=== PATIENT | female | born 1970 | race Two or more races ===

== ENCOUNTER 2020-04-11 09:57 | Outpatient (REF) | payer OTHER, SELFPAY | END 2020-04-11 09:58 | disposition home or self-care (01) | LOC: HO.LAB 09:57 | PROVIDERS: PCP Internal Medicine; Visit Provider Internal Medicine | DX: Z20.828 Contact with and (suspected) exposure to other viral communicable diseases (principal) | CPT/HCPCS: C9803; U0003 ==

== ENCOUNTER 2020-07-27 16:27 | Outpatient (RCR) | payer OTHER, SELFPAY ==
--- NOTE | 2020-07-27 17:55 | MHC.PT.EP ---
[facility] [place] Office [place] Office [place] Office [address] Diane Washburn [address] [phone] F: [phone] F: [phone] F: [phone] F: [phone] Physical Therapy Plan of Care Date of Evaluation: 07/27/20 Date of Surgery: Diagnosis: Cervicalgia Assessment: 49 y/o F referred to PT with cervicalgia. 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 Examination shows decreased cervical AROM, decreased R shoulder AROM, decreased scapular/RTC strength, increased pain and TTP, and impaired postural awareness. S/s consistent with cervical derangement. REcommend PT 2x/week for 5 weeks to address impairments, implement HEP, and optimize functional mobility. POC to include nkechi-based exercises, KT, STM/IASTM, nerve glides (?CTS R hand), postural training and strengthening. Frequency and Duration: The patient will be seen 2x/week for 5 weeks Short Term Goals: 3 weeks: 1. I with HEP 2. Improve cervical AROM >5 degrees in each direction Usp Goals: 5 weeks: 1. I with HEP and self management of sx 2. Pt will be able to reach overhead with pain < 3/10 3. Pt will be able to sleep through the night with pain < 3/10 Treatment Plan: Modalities to reduce pain, spasms and effusion. Manual therapy to restore motion and function. Therapeutic exercise to improve strength and flexibility. Neuromuscular re-education for posture and balance. Therapeutic activities to return to functional activities of daily living. Electronically signed by: Lolis Sherman PT Please sign and return to therapist. Thank you for your referral.
--- NOTE | 2020-08-31 18:05 | MHC.PT.DC ---
[facility] [place] Office [place] Office [place] Office [address] Diane Washburn [address] [phone] F: [phone] F: [phone] F: [phone] F: [phone] Physical Therapy Discharge Report Diagnosis: Cervicalgia Date of Surgery: Date of Evaluation: 07/27/20 Date of Discharge: 08/31/20 Treatments to Date: 1 Cancellations to Date: 0 No Shows to Date: Discharge Status: Visit Non-compliance Discharge Summary: Pt did not f/u with further visits following initial evaluation. D/c at this time Electronically signed by: Lolis Sherman PT Please sign and return to therapist. Thank you for your referral.
== END 2020-08-31 18:05 | disposition home or self-care (01) ==
LOC: HO.PT 16:27
PROVIDERS: PCP Internal Medicine; Visit Provider Internal Medicine
DX: M54.2 Cervicalgia (principal)
CPT/HCPCS: 97110; 97161

== ENCOUNTER 2020-08-04 06:16 | Outpatient (REF) | payer OTHER, SELFPAY ==
--- NOTE | ~2020-08-04 | XR_ITS ---
EXAMINATION: XR CERVICAL SPINE CLINICAL INFORMATION: Cervicalgia COMPARISON: None TECHNIQUE: 3 views of the cervical spine were obtained. FINDINGS: There are no prevertebral soft tissue or bony abnormalities demonstrated. No compression fractures or subluxations are identified. Alignment is maintained at the atlanto-axial articulation. The disc spaces are preserved. Small multilevel endplate osteophytes involving C4-C5, C5-C6, and C6-C7.. The prevertebral soft tissues are normal. The lung apices are clear. XR/XR cervical spine 3V IMPRESSION: Mild degenerative changes of the mid to lower cervical spine.
[2020-08-04 07:08] LABS: Eosinophils Absolute Auto 0.3 X10*3/uL (0.0-0.4); Eosinophils Percent Auto 3.6 % (0-4); Imm Gran Abs Auto 0.02 X10*3/uL (0.00-0.03); Imm Gran Pct Auto 0.3 % (0.0-0.4); MANUAL DIFF FLAG SCAN; PLT CLUMP 1; Red Cell Distribution Width 12.4 % (11.0-16.0); SCAN SMEAR FLAG 1
[2020-08-04 07:09] LABS: Basophils Percent Auto 0.4 % (0-2); Hematocrit 40.1 % (37-47); Hemoglobin 12.7 g/dl (12.0-16.0); Lymphocytes Absolute Auto 3.3 X10*3/uL (1.2-4.9); Lymphocytes Percent Auto 45.2 % (20-40); Mean Corpuscular HGB Conc 31.7 g/dl (31.0-35.0); Mean Corpuscular Hemoglobin 28.9 pg (27.0-33.0); Mean Corpuscular Volume 91.1 fL (80-98); Mean Platelet Volume 10.5 fL (9.4-12.3); Monocytes Absolute Auto 0.7 X10*3/uL (0.1-1.2); Monocytes Percent Auto 9.1 % (2-11); Neutrophils Percent Auto 41.4 % (45-73); Platelet Count 258 X10*3/uL (160-400); White Blood Count 7.2 X10*3/uL (4.8-10.8)
[2020-08-04 07:28] LABS: Alanine Aminotransferase 13 U/L (0-31); Albumin Level 3.8 g/dL (3.5-5.0); Alkaline Phosphatase 71 U/L (39-117); Anion Gap 10 (12-20); Aspartate Amino Transferase 14 U/L (5-31); Bilirubin Total 0.4 mg/dL (0.0-1.0); Blood Urea Nitrogen 21 mg/dL (9-16); Calcium 9.8 mg/dL (8.4-10.2); Carbon Dioxide 29 mmol/L (22-29); Chloride 105 mmol/L (96-108); Estimated Glomerular Filt Rate > 60; Glucose Fasting 94 mg/dL (60-99); Potassium 4.4 mmol/L (3.3-5.1); Sodium 140 mmol/L (135-145)
[2020-08-04 07:49] LABS: Thyroid Stimulating Hormone 1.77 uIU/mL (0.32-4.0)
[2020-08-04 08:01] LABS: Folate 8.2 ng/mL (> or = 4.0); Vitamin B12 398 pg/mL (200-900)
[2020-08-04 08:06] LABS: SLIDE REVIEW VERIFIED
[2020-08-08 12:51] LABS: Vitamin D 25-OH, D2 <4 ng/mL; Vitamin D 25-OH, D3 24 ng/mL; Vitamin D 25-OH, Total 24 ng/mL (30-100)
== END 2020-08-04 06:17 | disposition home or self-care (01) ==
LOC: HO.LAB 06:16
PROVIDERS: PCP Internal Medicine; Visit Provider Internal Medicine
DX: M54.2 Cervicalgia (principal); D64.9 Anemia, unspecified; R53.82 Chronic fatigue, unspecified; E55.9 Vitamin D deficiency, unspecified
CPT/HCPCS: 36415; 72040; 80053; 82306; 82607; 82746; 84443; 85025

== ENCOUNTER 2021-01-13 12:42 | Outpatient (REF) | payer OTHER, SELFPAY ==
[2021-01-18 22:03] LABS: HPV mRNA E6/E7 rflx Not Detected (Not Detected)
== END 2021-01-13 12:43 | disposition home or self-care (01) ==
LOC: HO.LAB 12:42
PROVIDERS: Visit Provider Advanced Practice Midwife
DX: Z01.419 Encounter for gynecological examination (general) (routine) without abnormal findings (principal); R23.2 Flushing; D25.9 Leiomyoma of uterus, unspecified
CPT/HCPCS: 87624; 88142

== ENCOUNTER 2021-02-02 13:07 | Outpatient (REF) | payer OTHER, SELFPAY ==
--- NOTE | ~2021-02-02 | US_ITS ---
EXAMINATION: US PELVIS CLINICAL INFORMATION: Leiomyoma of the uterus. COMPARISON: Ultrasound pelvis 10/09/2019 TECHNIQUE: Ultrasound of the pelvis is performed using both transabdominal and transvaginal transducers along with Doppler. Transvaginal imaging is performed due to inadequate visualization transabdominally. FINDINGS: The uterus is anteverted and anteflexed measuring 11.1 cm in length, 8.9 cm AP, and 11.0 cm in transverse dimension. The uterus is heterogeneous with multiple hypoechoic lesions seen. 1. Lesion in the anterior mid body of the uterus measures 3.5 x 3.4 x 4.6 cm. Previously it measured 4.0 x 3.6 x 5.0 cm. 2. Lesion in the posterior lower uterine body measures 4.9 x 3.5 x 4.4 cm. Previously it measured 3.7 x 3.7 x 4.1 cm. 3. Lesion in the upper posterior body of the uterus measures 3.4 x 2.9 x 3.7 cm. Previously it measured 3.7 x 3.7 x 4.1 cm. 4. Lesion in the central fundus measures 6.0 x 5.9 x 6.4 cm. Previously it measured 6.8 x 6.3 x 6.9 cm. The endometrium is not well visualized. There are small anechoic cyst in the cervix. The right ovary previously measured 3.3 x 1.4 x 1.9 cm. The right ovary is not seen on the present exam. The left ovary measures 3.9 x 2.6 x 2.9 cm and volume 15.4 mL. It appears unremarkable. Previously it measured 2.7 x 1.2 x 1.6 cm. There is no free fluid in the cul-de-sac. US/US pelvic and transvaginal IMPRESSION: Multiple uterine fibroids, as described above. Small nabothian cysts in the cervix. The ovaries are unremarkable.
== END 2021-02-02 13:08 | disposition home or self-care (01) ==
LOC: HO.US 13:07
PROVIDERS: Visit Provider Advanced Practice Midwife
DX: D25.9 Leiomyoma of uterus, unspecified (principal)
CPT/HCPCS: 76830; 76856

== ENCOUNTER → 2021-02-14 16:05 | Outpatient (BNVA) | payer OTHER, SELFPAY | PROVIDERS: PCP Internal Medicine; Visit Provider Advanced Practice Midwife ==

== ENCOUNTER 2022-01-17 08:12 | Outpatient (REF) | payer BC, SELFPAY ==
--- NOTE | ~2022-01-17 | US_ITS ---
EXAMINATION: MM DIAGNOSTIC DIGITAL BREAST TOMOSYNTHESIS, BILATERAL US DIAGNOSTIC ULTRASOUND BREAST, BILATERAL CLINICAL INFORMATION: Palpable area of concern noted by patient mid inferior left breast. Clinical exam also notes palpable area on right. TC score 6%. No known family history breast cancer. COMPARISON: Mammography: 08/14/2019, 01/15/2018, targeted left breast ultrasound 08/14/2019, bilateral targeted breast ultrasound 01/27/2018. TECHNIQUE: Digital breast tomosynthesis is performed in both the craniocaudal and mediolateral oblique views along with computer-aided detection (CAD). Synthesized 2D images are generated from the tomosynthesis. Ultrasound of each breast is targeted to the areas of clinical concern. Patient is able to point to the area of concern for the left breast. Grayscale imaging and color Doppler are performed without and with harmonics. FINDINGS: The breasts are heterogeneously dense, which may obscure small masses (ACR BI-RADS breast composition Category c). There is fibrocystic parenchymal pattern with waxing and waning asymmetry with compatible with prior studies. There is no architectural abnormality or abnormal calcifications. Large cysts central left breast and posterior outer right breast have extensively regressed since 2018. The axilla and skin contours are unremarkable. Ultrasound right breast demonstrates scattered simple cysts, largest 11:00 position 5 cm from nipple measuring 3.2 x 1.5 cm. These are anechoic and circumscribed with increased through-transmission of sound. There is a probable benign complicated acorn cyst 9:00 position 5 cm from nipple with some peripheral and internal geographic avascular echogenicity. Peripheral margins are circumscribed. There is no associated peripheral or internal color flow. Measurements are approximately 1.5 x 1.2 cm. There is increased through-transmission of sound. Recommend follow-up targeted right breast ultrasound in 6 months. Ultrasound left breast demonstrates scattered small simple cysts, largest 5:00 position 4 cm from nipple measuring 1.7 x 1.2 cm. This is anechoic and circumscribed with increased through-transmission of sound. The area of palpable concern corresponds to a complicated hypoechoic foam cyst with low-level internal echoes 6:00 position 3 cm from nipple measuring 0.8 x 0.6 cm. Margins appear incompletely defined. No internal color flow. Ultrasound-guided core biopsy is recommended to confirm benignity. Results are discussed with the patient at time of visit, using an associate professor of kinesiology. Patient is in agreement with management recommendations, left ultrasound-guided biopsy right follow-up targeted ultrasound. Results and recommendation are called to office (MIKIE Bruce) for Nirmala Bliss CNM on 01/17/2022. US/US breast LT limited IMPRESSION: Right: -Probable benign acorn cyst 1.5 cm right breast 9:00 position. Left: -Complicated foam cyst at site of palpable concern 6:00 position measuring 0.8 cm. ASSESSMENT: BI-RADS 4: Suspicious (subcategory 4A: Low suspicion for malignancy) RECOMMENDATION: -Left: Ultrasound-guided core biopsy hypoechoic nodule/foam cyst 6:00 position. -Right: Short interval follow-up targeted right breast ultrasound for probable benign complicated acorn cyst 9:00 position.
--- NOTE | ~2022-01-17 | US_ITS ---
EXAMINATION: MM DIAGNOSTIC DIGITAL BREAST TOMOSYNTHESIS, BILATERAL US DIAGNOSTIC ULTRASOUND BREAST, BILATERAL CLINICAL INFORMATION: Palpable area of concern noted by patient mid inferior left breast. Clinical exam also notes palpable area on right. TC score 6%. No known family history breast cancer. COMPARISON: Mammography: 08/14/2019, 01/15/2018, targeted left breast ultrasound 08/14/2019, bilateral targeted breast ultrasound 01/27/2018. TECHNIQUE: Digital breast tomosynthesis is performed in both the craniocaudal and mediolateral oblique views along with computer-aided detection (CAD). Synthesized 2D images are generated from the tomosynthesis. Ultrasound of each breast is targeted to the areas of clinical concern. Patient is able to point to the area of concern for the left breast. Grayscale imaging and color Doppler are performed without and with harmonics. FINDINGS: The breasts are heterogeneously dense, which may obscure small masses (ACR BI-RADS breast composition Category c). There is fibrocystic parenchymal pattern with waxing and waning asymmetry with compatible with prior studies. There is no architectural abnormality or abnormal calcifications. Large cysts central left breast and posterior outer right breast have extensively regressed since 2018. The axilla and skin contours are unremarkable. Ultrasound right breast demonstrates scattered simple cysts, largest 11:00 position 5 cm from nipple measuring 3.2 x 1.5 cm. These are anechoic and circumscribed with increased through-transmission of sound. There is a probable benign complicated acorn cyst 9:00 position 5 cm from nipple with some peripheral and internal geographic avascular echogenicity. Peripheral margins are circumscribed. There is no associated peripheral or internal color flow. Measurements are approximately 1.5 x 1.2 cm. There is increased through-transmission of sound. Recommend follow-up targeted right breast ultrasound in 6 months. Ultrasound left breast demonstrates scattered small simple cysts, largest 5:00 position 4 cm from nipple measuring 1.7 x 1.2 cm. This is anechoic and circumscribed with increased through-transmission of sound. The area of palpable concern corresponds to a complicated hypoechoic foam cyst with low-level internal echoes 6:00 position 3 cm from nipple measuring 0.8 x 0.6 cm. Margins appear incompletely defined. No internal color flow. Ultrasound-guided core biopsy is recommended to confirm benignity. Results are discussed with the patient at time of visit, using an court interpreter. Patient is in agreement with management recommendations, left ultrasound-guided biopsy right follow-up targeted ultrasound. Results and recommendation are called to office (MIKIE Bruce) for Nirmala Bliss CNM on 01/17/2022. US/US breast RT limited IMPRESSION: Right: -Probable benign acorn cyst 1.5 cm right breast 9:00 position. Left: -Complicated foam cyst at site of palpable concern 6:00 position measuring 0.8 cm. ASSESSMENT: BI-RADS 4: Suspicious (subcategory 4A: Low suspicion for malignancy) RECOMMENDATION: -Left: Ultrasound-guided core biopsy hypoechoic nodule/foam cyst 6:00 position. -Right: Short interval follow-up targeted right breast ultrasound for probable benign complicated acorn cyst 9:00 position.
== END 2022-01-17 08:13 | disposition home or self-care (01) ==
LOC: HO.MAMMO 08:12
PROVIDERS: PCP Internal Medicine; Visit Provider Advanced Practice Midwife
DX: N63.15 Unspecified lump in the right breast, overlapping quadrants (principal); N60.02 Solitary cyst of left breast
CPT/HCPCS: 76642; 77062; 77066

== ENCOUNTER 2022-01-19 09:13 | Outpatient (REF) | payer BC, SELFPAY ==
--- NOTE | ~2022-01-19 | MM_ITS ---
EXAMINATION: ULTRASOUND GUIDED CORE BIOPSY BREAST, LEFT POST PROCEDURE DIGITAL BREAST TOMOSYNTHESIS, LEFT CLINICAL INFORMATION: Palpable concern mid inferior left breast with small ultrasound correlate for tissue sampling. COMPARISON: Mammography and targeted breast ultrasound 01/17/2022. FINDINGS: Proper informed consent is obtained from the patient after discussion of the procedure, potential risks and complications, and alternatives. Patient was given an opportunity for questions. The patient appeared to understand. The patient consented to the procedure and signed the consent form. Hospital provided debt collection specialist assisted for the consent and throughout the procedure. GUIDANCE: Ultrasound-guided; aseptic technique. LESION: Complicated hypoechoic foam cyst with low-level internal echoes and incompletely defined margins 6:00 position mid depth measuring under 1 cm. APPROACH: Lateral medial. ANESTHESIA: 10 mL carbonated 1% lidocaine. DERMATOTOMY: Single skin florentino dermatotomy performed. NEEDLE: 14-gauge Achieve core biopsy device with 13.5-gauge co-axial guide needle. CORES: 4. CLIP: HydroMARK; shape: butterfly. POST PROCEDURE DIGITAL BREAST TOMOSYNTHESIS, LEFT: The post biopsy mammogram is performed in separate room using separate digital breast tomosynthesis equipment from the biopsy procedure. CC and ML views are obtained. Synthesized 2-D images are generated from the tomography. The breasts are heterogeneously dense, which may obscure small masses (breast composition category: c). The clip marker is in position and corresponds to the area of palpable concern noted on prior mammography with symptom marker. No gross hematoma. The patient tolerated the procedure well. No immediate complications. Home instructions reviewed with the patient. Final pathology results are pending. MM/MM tomosynthesis diagnostic LT IMPRESSION: 1. Status post ultrasound-guided core biopsy left breast. 2. Clip placed: HydroMARK; shape: butterfly. 3. Pathology pending. An addendum report will be issued.
[2022-01-19] MEDS: Lidocaine HCl 1 % 20 ML VIAL 9 ML SUBCUT (10:57)
[2022-01-19] MEDS: Sodium Bicarbonate 8.4% 50 MEQ/50 ML VIAL SUBCUT (10:57)
== END 2022-01-19 09:14 | disposition home or self-care (01) ==
LOC: HO.MAMMO 09:13
PROVIDERS: PCP Internal Medicine; Visit Provider Surgery
DX: R92.8 Other abnormal and inconclusive findings on diagnostic imaging of breast (principal)
CPT/HCPCS: 19083; 77061; 77065; 88305

== ENCOUNTER 2022-01-26 10:51 | Outpatient (REF) | payer BC, SELFPAY ==
--- NOTE | ~2022-01-26 | US_ITS ---
EXAMINATION: US PELVIS CLINICAL INFORMATION: COMPARISON: None TECHNIQUE: Ultrasound of the pelvis is performed using both transabdominal and transvaginal transducers along with Doppler. Transvaginal imaging is performed due to inadequate visualization transabdominally. FINDINGS: Uterus: The uterus is anteverted and measures 15.3 x 7.0 x 11.2 cm. The double wall endometrial thickness is poorly assessed due to uterine fibroid disease. Nabothian cysts are seen within the cervix. The uterus is smooth in contour and has normal myometrial echogenicity. FIBROIDS: There are 3 fibroids seen. 1. Location: Upper anterior body, myometrial. Size: 3.6 x 3.4 x 3.8 cm. Prior: 3.5 x 3.4 x 4.6 cm. Fibroid characteristics: Isoechoic. 2. Location: Upper posterior body, myometrial. Size: 4.9 x 3.2 x 3.3 cm. Prior: 4.9 x 3.5 x 4.4 cm. Fibroid characteristics: Isoechoic. 3. Location: Fundal, myometrial. Size: 6.4 x 3.7 x 6.6 cm. Prior: 6.0 x 5.9 x 6.4 cm. Fibroid characteristics: Heterogeneous echotexture, foci of internal cystic degenerative change. Adnexa: Both ovaries are visualized. There is normal color flow to the adnexa. There is no ovarian torsion. There is no pelvic ascites or fluid collection. Right ovary measures 2.4 x 1.0 x 1.2 cm (volume 1.5 mL). Left ovary measures 4.6 x 1.9 x 3.4 cm (volume 15.9 mL). US/US pelvic and transvaginal IMPRESSION: 1. There is again uterine fibroid disease. 2. The endometrial stripe is poorly visualized due to uterine fibroids. 3. Nabothian cysts are seen within the cervix.
== END 2022-01-26 10:52 | disposition home or self-care (01) ==
LOC: HO.US 10:51
PROVIDERS: Visit Provider Advanced Practice Midwife
DX: D25.9 Leiomyoma of uterus, unspecified (principal)
CPT/HCPCS: 76830; 76856

== ENCOUNTER 2022-12-16 17:47 | Emergency (ER) | payer OTHER, SELFPAY ==
--- NOTE | ~2022-12-16 | US_ITS ---
EXAMINATION: US VENOUS ULTRASOUND WITH DOPPLER LOWER EXTREMITY, RIGHT CLINICAL INFORMATION: Right calf pain. COMPARISON: None available. TECHNIQUE: Ultrasound of the deep veins is performed from the hip to the calf with compression sonography and color and pulse Doppler assessment. Spectral analysis with color-flow imaging is performed. FINDINGS: There is normal venous compression and respiratory variation and augmented flow. The visualized common femoral vein, superficial femoral vein, profunda femoral vein, popliteal vein, and the trifurcation region shows no evidence of deep venous thrombosis. There is no significant popliteal fossa cyst. If the patient's symptoms persist, followup ultrasound in 5 days 7 days might be of value to exclude proximal propagation from a non-visualized calf vein. US/US venous duplex LE RT IMPRESSION: No DVT demonstrated in the right lower extremity.
--- NOTE | ~2022-12-16 | XR_ITS ---
EXAMINATION: XR KNEE, RIGHT CLINICAL INFORMATION: Right knee pain. COMPARISON: None available. TECHNIQUE: Four views of the right knee. FINDINGS: No fracture or joint effusion. Alignment is anatomic. Joint spaces are maintained. No abnormal soft tissue calcification. XR/XR knee RT 4V IMPRESSION: Unremarkable radiographic appearance of the right knee.
[2022-12-16 18:55] VITALS: BP 167/77; PULSE 73; RESP 18; TEMP 37.3; O2SAT 100; BMI 27.5
--- NOTE | 2022-12-16 18:59 | ED.GENADULT ---
HPI - General Adult General Chief complaint: Extremity Injury, Lower Stated complaint: Right knee pain Time Seen by Provider: 12/16/22 19:26 Source: patient Mode of arrival: ambulatory Limitations: no limitations History of Present Illness HPI narrative: patient is a 52-year-old female who presents emergency department for evaluation of pain to the right lower extremity notably to the knee thigh and calf. she has been experiencing pain to the right knee for approximately 6 months, she was seen at urgent care reportedly a few months ago diagnosed with arthritis. Her pain has been constant for the past 6 months however she has noticed a significant increase over the past week without any notable injury. Reports her mother has a history of DVT. She denies chest pain, shortness of breath, dizziness, lightheadedness, numbness, tingling Related Data Previous Rx's Medication Instructions Recorded loratadine 10 mg tablet 10 mg PO DAILY 90 days #90 tabs 01/29/21 naproxen 500 mg tablet 500 mg PO BID PRN pain 90 days 04/30/21 #180 tabs ibuprofen 800 mg tablet 800 mg PO TID PRN pain 30 days #90 12/04/21 tabs pantoprazole 40 mg tablet,delayed 40 mg PO DAILY 90 days #90 tabs 12/04/21 release Allergies Allergy/AdvReac Type Severity Reaction Status Date / Time No Known Allergies Allergy Verified 02/09/22 11:16 [No Known Allergies*] Review of Systems Review of Systems: Yes all other systems are reviewed and are negative [facility] Past Medical History Attestation statement: The following information was validated with the patient. Source: old records reviewed Medical History Abnormal Pap smear of cervix Allergies Breast mass, right Cervicalgia Fatigue Fibroid uterus GERD (gastroesophageal reflux disease) Hand numbness HPV test positive Neck pain Polyarthralgia Surgical History History of hemicolectomy History of laparoscopic cholecystectomy Family History Family History Father Alcoholism Mother No problems noted. Brother Diabetes Social History Social History Household Members: Significant Other Housing: Apartment Alcohol intake: current Alcohol intake frequency: holidays/special occasions only Alcohol type: hard liquor Patient Tobacco Use Status: Former Tobacco user e-Cigarette/Vaping Use: Never Used Second Hand Smoke Exposure: No Advance Directives: No Advance Directives Information Provided: No service: No Current occupational status: employed Current occupation: [employer] Current occupational exposures/hazards: No Sexual orientation: Straight/Heterosexual Gender identity: Female Physical Exam ED Vital Signs: Vital Signs - 24 hr 12/16/22 18:55 Temperature 99.2 F Pulse Rate 73 Respiratory Rate 18 Blood Pressure 167/77 H Pulse Oximetry 100 Oxygen Delivery Method Room Air BMI result Body Mass Index 27.5 Appearance: Alert.?Oriented to person, place and time. No acute distress.?Normal affect. Neck: Normal inspection.? Neck supple.?? CVS: Heart sounds normal. Normal heart rate and rhythm.? Pulses normal.?? Respiratory: No respiratory distress.? Lung sounds clear to auscultation bilaterally??? Skin: Skin warm and dry.? Normal skin color.? Extremities: No lower extremity edema.? No calf ttp? Neuro: Moves all extremities spontaneously. Sensation intact bilaterally. No focal neuro deficits. Ambulates with antalgic gait. Course Course Course Narrative: RME: 52 yold female presents to the ED for RIght knee pain, right thigh pain, and right calf pain. mother has pmh of DVT. Patient states no chest pain or shortenness of breath. RIght knee xray and Ultrasound orderedd. Right lower extremity motor/neuro/vascular exam is intact. Reevaluation(s) Reevaluation #1: I presented at patient's bedside to reviewed imaging findings, at this time patient had eloped Time: 21:00 Medical Decision Making Medical Decision Making MDM Narrative: patient is a 52-year-old female who presents to the emergency department for evaluation of acute on chronic right knee pain. Physical examination is overall benign, as per rapid medical examination provider, XR imaging and venous duplex to be obtained to evaluate for fracture, DVT, Neri cyst Differential Diagnosis Differential Diagnoses: The differential diagnosis associated with the presentation includes ( as noted above) Independent Interpretation I performed an independent interpretation of an: Plain X-Ray ( personally interpreted XR imaging of the right knee and agree with radiologist impression, no evidence of acute fracture dislocation.) Radiology Impression Discussion of test interpretation with radiology: I have reviewed the radiologist's reading. Radiologist Impression: US/US venous duplex LE RT IMPRESSION: No DVT demonstrated in the right lower extremity. XR/XR knee RT 4V IMPRESSION: Unremarkable radiographic appearance of the right knee. Independent Historian Clinical information obtained from an independent historian. History obtained from or confirmed by: Spouse ( present at bedside and confirms history) Discharge Plan Discharge Clinical Impression: Knee pain Patient Disposition: Elopement Prescriptions: No Action loratadine 10 mg tablet 10 mg PO DAILY 90 Days Qty: 90 3RF naproxen 500 mg tablet 500 mg PO BID PRN (Reason: pain) 90 Days Qty: 180 0RF ibuprofen 800 mg tablet 800 mg PO TID PRN (Reason: pain) 30 Days Qty: 90 1RF pantoprazole 40 mg tablet,delayed release (DR/EC) 40 mg PO DAILY 90 Days Qty: 90 3RF Interventions: ED Discharge Assessment Last Done: 12/16/22 21:20 Discharge Date/Time: 12/16/22 21:20
== END 2022-12-16 21:20 | disposition left against medical advice (07) ==
PROVIDERS: Emergency Provider Internal Medicine; PCP Internal Medicine
DX: M25.561 Pain in right knee (principal); R60.0 Localized edema; Z79.899 Other long term (current) drug therapy; Z87.891 Personal history of nicotine dependence
CPT/HCPCS: 73564; 93971; 99282; 99283

== ENCOUNTER 2023-04-06 09:39 | Outpatient (REF) | payer BC, SELFPAY ==
--- NOTE | ~2023-04-06 | MM_ITS ---
EXAMINATION: MM SCREENING DIGITAL BREAST TOMOSYNTHESIS, BILATERAL CLINICAL INFORMATION: Screening. Asymptomatic. COMPARISON: Mammography: This study is compared with prior exams dating back to 2018. TECHNIQUE: Digital breast tomosynthesis is performed in both the craniocaudal and mediolateral oblique views along with computer-aided detection (CAD). Synthesized 2D images are generated from the tomosynthesis. FINDINGS: There are scattered areas of fibroglandular density (ACR BI-RADS breast composition Category b). There are no significant masses, abnormal calcifications, or other abnormalities. There is a tissue marker in the left breast from prior benign percutaneous biopsy. MM/MM tomosynthesis screening BI IMPRESSION: No mammographic evidence of malignancy. ASSESSMENT: BI-RADS BI-RADS 2 - Benign Findings RECOMMENDATION: Routine annual mammography screening. 1 year F/U This examination should not preclude the clinical evaluation of a suspicious palpable abnormality. This patient's information was entered into a reminder system with a target due date for their next mammogram.
== END 2023-04-06 09:40 | disposition home or self-care (01) ==
LOC: HO.MAMMO 09:39
PROVIDERS: PCP Internal Medicine; Visit Provider Internal Medicine
DX: Z12.31 Encounter for screening mammogram for malignant neoplasm of breast (principal)
CPT/HCPCS: 77063; 77067

== ENCOUNTER → 2023-04-06 10:00 | Outpatient (BNV) | payer BC, SELFPAY | PROVIDERS: PCP Internal Medicine; Visit Provider Radiology Diagnostic Radiology | DX: Z12.31 Encounter for screening mammogram for malignant neoplasm of breast (principal) | CPT/HCPCS: 77063; 77067 ==

== ENCOUNTER 2023-06-19 14:40 | Outpatient (AMB) | payer BC, SELFPAY ==
[2023-06-19 14:55] VITALS: BP 136/76; BMI 30.2
--- NOTE | 2023-06-19 14:55 | A.OFFPC_ITS ---
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 Accompanied by: Self / Same As Patient Allergies No Known Allergies [No Known Allergies*] Allergy (Verified 06/19/23 15:27) Medication List - Last Reconciled 06/19/23 by Nadine Manrique MD ibuprofen 800 mg PO TID PRN 30 days loratadine 10 mg PO DAILY 90 days pantoprazole 40 mg PO DAILY 90 days Tobacco use date assessed: 06/19/23 Dental Screening Dental Screen Date: 06/19/23 Did you have a dental visit in the last 12 months?: Yes Did you have a dental problem in the last 6 months where you did not have access to dental care?: No Was dental information given to patient?: Patient has dentist HPI HPI Comments History of Present Illness Details This is a 52-year-old female that comes for her physical exam. Last Pap smear was 2021. Last mammogram was March 2023. Last colonoscopy was over 10 years ago. No chest pain or shortness of breath. [facility], [facility] Medical History (Updated 06/19/23 @ 15:35 by Nadine Manrique MD) Breast mass, right Polyarthralgia Abnormal Pap smear of cervix Fibroid uterus HPV test positive Cervicalgia Neck pain Fatigue Hand numbness Allergies GERD (gastroesophageal reflux disease) Surgical History History of hemicolectomy History of laparoscopic cholecystectomy Family History Father Alcoholism Mother No problems noted. 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 1. Little interest or pleasure in doing things: not at all 2. Feeling down, depressed, or hopeless: not at all 3. Trouble falling or staying asleep, or sleeping too much: not at all 4. Feeling tired or having little energy: not at all 5. Poor appetite or overeating: not at all 6. Feeling bad about yourself - or that you are a failure or have let yourself or your family down: not at all 7. Trouble concentrating on things, such as reading the newspaper or watching television: not at all 8. Moving or speaking so slowly that other people could have noticed. Or the opposite - being so fidgety or restless that you have been moving around a lot more than usual: not at all 9. Thoughts that you would be better off or of hurting yourself in some way: not at all Total score: 0 Depression Screening Interpretation: Negative Depression Screening Done: Yes 38646 - PHQ-9 Billing: Yes Source: Developed by Drs. Fede Ott, Barbie Chandra, Naldo Hull and colleagues, with an educational mack from [employer]. Thrive Questionnaire Date Thrive assessed: 06/19/23 I am a: Patient What is your living situation today?: I have a steady place to live Within the past 12 months, did the food you bought not last and you didn't have the money to get more?: Never true Within the past 12 months, did you worry whether your food would run out before you got money to buy more?: Never true Do you have trouble paying for medicines?: No Do you have trouble getting transportation to medical appointments?: No Do you have trouble paying your heating and electricity bill?: No Do you have trouble taking care of your child, family member or friend?: No Do you have trouble with day-to-day activities such as bathing, preparing meals, shopping, managing finances, etc.?: No Are you currently unemployed and looking for a job?: No Are you interested in more education?: No Please select the resources that you would like help with: None Currently or been in a relationship where the following occur: no concerns reported THRIVE Score: 0 AUDIT C Alcohol Use Questionnaire (AUDIT-C) 1. How often do you have a drink containing alcohol?: Monthly or less 2. How many drinks containing alcohol do you have on a typical day when you are drinking?: 1 or 2 3. How often do you have six or more drinks on one occasion?: Never Total Score: 1 PHAN-7 AMB Questionnaire PHAN-7 Date PHAN - 7 assessed: 06/19/23 Feeling nervous, anxious, or on edge: 0 = Not at all Not being able to stop or control worryin = Not at all Worrying too much about different things: 0 = Not at all Trouble relaxin = Not at all Being so restless that it is hard to sit still: 0 = Not at all Becoming easily annoyed or irritable: 0 = Not at all Feeling afraid as if something awful might happen: 0 = Not at all Total PHAN-7 score (0-4 normal; 5-9 mild; 10-14 moderate; 15-21 severe): 0 Source: Developed by Drs. Fede Ott, Barbie Chandra, Naldo Hull and colleagues, with an educational mack from [employer]. PHAN-7 Assessment Billing PHAN-7 Assessment Tool: PHAN-7 Assessment 47950 Review of Systems Const All systems reviewed & are unremarkable except as noted in HPI and below Eyes Reports no additional complaints, Denies change in vision and Denies other visual disturbances Card Denies chest pain at rest, Denies chest pain with activity, Denies edema, Denies irregular heart rhythm, Denies claudication, Denies dyspnea, Denies dyspnea on exertion, Denies orthopnea, Denies paroxysmal nocturnal dyspnea and Denies slow heart rate Resp Denies cough, Denies dyspnea and Denies dyspnea on exertion GI Denies abdominal pain, Denies change in bowel habits, Denies excessive flatus, Denies nausea and Denies vomiting Denies urinary incontinence, Denies urinary hesitancy and Denies urinary urgency Musc Denies abnormal gait, Denies atrophy, Denies deformity and Denies limited range of motion Skin/Breast Denies bleeding lesions, Denies changing lesions and Denies rash Neuro Denies abnormal gait, Denies behavioral changes, Denies confusion and Denies lack of coordination Psych Denies behavioral changes and Denies confusion Physical exam (Primary Care) Vital Signs: Last Vital Signs BP 136/76 06/19/23 14:55 BMI result Body Mass Index 30.2 Tobacco/Smoking Status: Tobacco use Status Tobacco use date assessed 06/19/23 06/19/23 15:01 Patient Tobacco Use Status Former Tobacco user 06/19/23 15:01 e-Cigarette/Vaping Use Never Used 06/19/23 15:01 PHQ-9: PHQ-9 Score PHQ-9: Total score 0 06/19/23 15:01 Depression Screening Interpretation: Negative Thrive Assessment: Date of Thrive Assessment Date Thrive assessed 06/19/23 06/19/23 15:01 Currently or been in a relationship where the following occur: no concerns reported Const General: No confusion Orientation/consciousness: patient oriented x3 and No confusion HENMT Head: Yes normal to inspection, Yes normocephalic and Yes atraumatic Ears: external ears normal Eyes General: appearance normal, both eyes and all related structures Eyelids: Yes eyelids normal Conjunctivae: conjunctivae normal Neck Neck: Yes normal visual inspection and Yes supple Resp Effort & Inspection: normal respiratory effort Auscultation: clear to auscultation bilaterally Cardio Jugular venous distension: no JVD Rate: regular rate Rhythm: regular rhythm Heart sounds: S1 normal heart sound present and S2 normal heart sound present GI Inspection: Yes normal to inspection Palpation (GI): Soft to palpation and nontender Auscultation: normal bowel sounds Skin General skin exam: no rashes or lesions noted Neuro General: patient oriented x3, no focal motor deficits and No confusion Extrem General: Yes full ROM Psych Appearance: grossly normal Assessment and Plan Assessment & Plan (1) Physical exam: Code(s): Z00.00 - Encounter for general adult medical examination without abnormal findings Plan: Repeat in a year. Orders: Orders Comprehensive [place]. Panel Fast Today Z00.00 - Encounter for general adult medical examination without abnormal findings Lipid Panel Today E78.5 - Hyperlipidemia, unspecified, Z00.00 - Encounter for general adult medical examination without abnormal findings Referrals Open Access Screening Colonoscopy Referral Z12.11 - Encounter for screening for malignant neoplasm of colon Medications: Refilled ibuprofen 800 mg PO TID 30 days PRN 90 tabs 1RF pain loratadine 10 mg PO DAILY 90 days 90 tabs 3RF pantoprazole 40 mg PO DAILY 90 days 90 tabs 3RF Coding Level of Care Code Est Pt Prev Care 40-64y(73168) Diagnoses Physical exam Z00.00 Additional Codes PHAN-7 Assessment Billing - PHAN-7 Assessment Tool: PHAN-7 Assessment 07715 ([id number]) Time Spent (min) 31
== END 2023-06-19 15:34 | disposition home or self-care (01) ==
PROVIDERS: PCP Internal Medicine; Visit Provider Internal Medicine
DX: Z00.00 Encounter for general adult medical examination without abnormal findings (principal)
CPT/HCPCS: 99396

== ENCOUNTER 2023-06-21 06:24 | Outpatient (REF) | payer BC, SELFPAY ==
[2023-06-21 07:43] LABS: Alanine Aminotransferase 22 U/L (0-31); Albumin Level 3.9 g/dL (3.5-5.0); Alkaline Phosphatase 79 U/L (39-117); Anion Gap 12 (12-20); Aspartate Amino Transferase 17 U/L (5-31); Bilirubin Total 0.4 mg/dL (0.0-1.0); Blood Urea Nitrogen 18 mg/dL (9-16); Calcium 9.3 mg/dL (8.4-10.2); Carbon Dioxide 28 mmol/L (22-29); Chloride 107 mmol/L (96-108); Cholesterol 200 mg/dL (<200); Estimated Glomerular Filt Rate > 60; Glucose Fasting 93 mg/dL (60-99); HDL Cholesterol 66 mg/dL (>40); LDL Cholesterol Calculated 115 mg/dL (<100); Potassium 4.5 mmol/L (3.3-5.1); Sodium 142 mmol/L (135-145); Total Protein 7.5 g/dL (6.5-8.0); Triglycerides 95 mg/dL (<150)
== END 2023-06-21 06:25 | disposition home or self-care (01) ==
LOC: HO.LAB 06:24
PROVIDERS: PCP Internal Medicine; Visit Provider Internal Medicine
DX: Z00.00 Encounter for general adult medical examination without abnormal findings (principal); E78.5 Hyperlipidemia, unspecified
CPT/HCPCS: 36415; 80053; 80061

== ENCOUNTER 2023-08-16 14:12 | Outpatient (AMB) | payer BC, SELFPAY ==
--- NOTE | 2023-08-16 14:14 | MHC.OFFVIS ---
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 She is doing well with no concerns. History of known fibroids, she denies any bleeding or pelvic pain. Attempting to eat a healthy diet with calcium and vitamin D and stays active with exercise. Currently sexually active. Denies any vaginal dryness or irritation. STI testing offered; she declines. Last pap smear; 2020, 2019 negative/negative, ASCUS 2017. Last mammogram; 2022. Colonoscopy is UTD. Denies any family history of breast, ovarian or colon cancer. [facility] Medical History Breast mass, right Polyarthralgia Abnormal Pap smear of cervix Fibroid uterus HPV test positive Cervicalgia Neck pain Fatigue Hand numbness Allergies GERD (gastroesophageal reflux disease) Surgical History Hx of tubal ligation History of hemicolectomy History of laparoscopic cholecystectomy Family History Father Alcoholism Mother No problems noted. Brother Diabetes Social History Household Members: Significant Other Housing: Apartment Alcohol intake: current Alcohol intake frequency: holidays/special occasions only Alcohol type: hard liquor Patient Tobacco Use Status: Former Tobacco user e-Cigarette/Vaping Use: Never Used Second Hand Smoke Exposure: No service: No Current occupational status: employed Current occupation: [employer]/ [employer] Current occupational exposures/hazards: No Sexual orientation: Straight/Heterosexual Gender identity: Female Cognitive needs: No Hearing needs: No Vision needs: No Female Reproductive History Menstrual Age of Menarche: 13 control method: permanent sterilization Total pregnancies: 5 Full term: 5 Number of Living Children: 5 Date of last pap smear: 01/16/21 Date of Mammogram: 04/06/23 Review of Systems Const All systems reviewed & are unremarkable except as noted in HPI and below Reports as per HPI Eyes Reports no additional complaints ENT Reports no additional complaints Card Reports no additional complaints Resp Reports no additional complaints GI Reports as per HPI and Reports no additional complaints Reports as per HPI Musc Reports no additional complaints Skin/Breast Reports as per HPI Neuro Reports no additional complaints Psych Reports no additional complaints Endo Reports no additional complaints Brice/Lymph Reports no additional complaints Aller/Immun Reports no additional complaints Physical Exam Vital Signs: Last Vital Signs BP 124/76 08/16/23 14:15 BMI result Body Mass Index 29.5 Const General: cooperative, healthy appearing, no acute distress, well developed and alert Orientation/consciousness: patient oriented x3 HEENT Head: Yes normal to inspection Eyes General: appearance normal, both eyes and all related structures Neck Neck: Yes normal visual inspection Thyroid: Thyroid normal Chest Chest palpation & inspection: normal inspection of the chest and other (no puckering, dimpling, peau de orange, retraction, discharge, masses) Breast/axilla inspection: normal inspection of the breasts Breast/axilla palpation: normal palpation of the breasts Resp Effort & Inspection: normal respiratory effort GI Inspection: Yes normal to inspection Palpation (GI): Soft to palpation Rectal Exam - Female: deferred General: Yes bladder normal to palpation External Female Exam: normal external appearance and normal appearance of the urethra Speculum Exam - Vagina: normal appearance of the vagina, normal palpation and normal vaginal discharge Speculum Exam - Cervix: normal appearance of the cervix, normal palpation and Nabothian cyst present (Multiple) Bimanual exam- vagina & uterus: normal bimanual exam, normal palpation, bladder normal to palpation, normal palpation, non-tender and enlarged Bimanual Exam- Adnexa, other: no masses Skin General skin exam: no rashes or lesions noted Rashes: no rashes Neuro General: patient oriented x3 Cognition (Neuro): normal cognition Extrem General: Yes normal to inspection Psych Attitude: cooperative Thought process: Normal thought process present Quality Reporting (2019) Adult ([facility] 138/2//69) Smoking risk assessment performed?: Yes Patient Tobacco Use Status: Former Tobacco user Assessment & Plan Assessment & Plan (1) Encounter for well woman exam with routine gynecological exam: Code(s): Z01.419 - Encounter for gynecological examination (general) (routine) without abnormal findings Plan Discussed: Current recommendations for pap smears per ASCCP guidelines. Breast awareness, periodic self breast exams and yearly mammogram. Maintain a healthy lifestyle, well balanced diet including Calcium 1,200 mg and Vitamin D 600 IU daily, and routine exercise. Plan yearly check for fibroids stability with pelvic ultrasound. Return to the office to discuss test results when completed. Contact the office with any postmenopausal bleeding, bloating discomfort, pelvic pain. Patient verbalizes understanding and agrees to the plan of care. She was given opportunity to ask questions and all questions were answered to the best of my ability. RTO in 1 year for annual supervisor force adjustment exam. This note is constructed using voice recognition software. While every effort has been made to ensure accuracy, account services coordinator errors may have been included. Orders: Orders US pelvic and transvaginal Today D21.9 - Benign neoplasm of connective and other soft tissue, unspecified
[2023-08-16 14:15] VITALS: BP 124/76; BMI 29.5
== END 2023-08-16 15:20 | disposition home or self-care (01) ==
PROVIDERS: PCP Internal Medicine; Visit Provider Advanced Practice Midwife
DX: Z01.419 Encounter for gynecological examination (general) (routine) without abnormal findings (principal)
CPT/HCPCS: 99396

== ENCOUNTER → 2023-08-16 14:12 | Outpatient (BNVA) | payer BC, SELFPAY | PROVIDERS: PCP Internal Medicine; Visit Provider Advanced Practice Midwife ==

== ENCOUNTER 2023-11-28 12:50 | Outpatient (REF) | payer OTHER, SELFPAY ==
--- NOTE | ~2023-11-28 | US_ITS ---
EXAMINATION: US PELVIS COMPLETE CLINICAL INFORMATION: Follow-up uterine fibroids; the last menstrual period is not specified. COMPARISON: Pelvic ultrasound dated 01/26/2010. TECHNIQUE: Transabdominal and transvaginal imaging were performed. FINDINGS: The uterus is of normal size and echogenicity, measuring 12.6 x 8.5 x 10.0 cm. The uterus is anteverted and anteflexed. A regular homogeneous endometrium is identified measuring 0.5 cm. FIBROIDS: There are 4 fibroids seen. 1. Location: Posterior upper rightward body, myometrial. Size: 6.2 x 6.4 x 5.5 cm. Fibroid characteristics: 2. Location: Posterior lower rightward body, myometrial. Size: 3.3 x 3.2 x 3.3 cm. Fibroid characteristics: 3. Location: Anterior leftward upper body, myometrial. Size: 5.3 x 3.7 x 4.4 cm. Fibroid characteristics: 4. Location: Leftward fundus, myometrial. Size: 4.7 x 3.0 x 4.4 cm. Fibroid characteristics: Both ovaries are of normal size and echogenicity. The right ovary is not visualized. The left ovary measures 2.9 x 2.5 x 3.8 cm for a volume of 14.4 mL. There is no pelvic free fluid. No adnexal mass is seen. US/US pelvic and transvaginal IMPRESSION: 1. Multiple uterine fibroids are seen, as detailed. 2. The right ovary is not visualized. Electronically signed by: Vu Montoya MD 12/23/2023 04:57 PM EDT
== END 2023-11-28 12:51 | disposition home or self-care (01) ==
LOC: HO.US 12:50
PROVIDERS: PCP Internal Medicine; Visit Provider Advanced Practice Midwife
DX: D21.9 Benign neoplasm of connective and other soft tissue, unspecified (principal)
CPT/HCPCS: 76830; 76856

== ENCOUNTER 2023-12-10 10:17 | Outpatient (REF) | payer OTHER, SELFPAY ==
--- NOTE | ~2023-12-10 | XR_ITS ---
EXAMINATION: XR KNEE, RIGHT CLINICAL INFORMATION: Pain COMPARISON: 12/16/2022 TECHNIQUE: Three views of the right knee. FINDINGS: Mild degenerative changes with joint space narrowing of the medial tibiofemoral compartment. No acute fracture or dislocation. No large effusion. XR/XR knee RT 3V IMPRESSION: Mild degenerative changes of the right knee joint. Electronically signed by: Brenda Tamayo MD 01/07/2024 06:30 PM EDT
== END 2023-12-10 10:18 | disposition home or self-care (01) ==
LOC: HO.HOSX 10:17
PROVIDERS: Visit Provider Orthopaedic Surgery
DX: M25.562 Pain in left knee (principal)
CPT/HCPCS: 73562; 99202

== ENCOUNTER 2023-12-10 10:34 | Outpatient (AMB) | payer OTHER, SELFPAY ==
--- NOTE | 2023-12-10 10:44 | A.OFFVIS_ITS ---
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 The patient states that her symptoms have gotten worse over the last 2 years in spite of continued non operative treatments. She has failed the last 6 weeks of conservative treatment. She has done physical therapy which aggravated her pain. She has also tried Tylenol and anti-inflammatory medicines which gave minimal relief. Most of the pain is along the medial aspect of her knee. She states that her right knee will give out several times per day. She does wear a knee brace which gives her minimal relief. Retort Load Expediter Services: Retort Load Expediter Offered & Declined Accompanied by: Spouse Allergies No Known Allergies [No Known Allergies*] Allergy (Verified 12/10/23 10:55) Medication List - Last Reconciled 12/10/23 by Santana Rich MD ibuprofen 800 mg PO TID PRN 30 days loratadine 10 mg PO DAILY 90 days pantoprazole 40 mg PO DAILY 90 days [facility] Medical History Breast mass, right Polyarthralgia Abnormal Pap smear of cervix Fibroid uterus HPV test positive Cervicalgia Neck pain Fatigue Hand numbness Allergies GERD (gastroesophageal reflux disease) Surgical History Hx of tubal ligation History of hemicolectomy History of laparoscopic cholecystectomy Family History Father Alcoholism Mother No problems noted. 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 Current occupational exposures/hazards: No Sexual orientation: Straight/Heterosexual Gender identity: Female Cognitive needs: No Hearing needs: No Vision needs: No Female Reproductive History Menstrual Age of Menarche: 13 Physical Exam Const Other: Well-nourished well-developed very friendly female awake alert and oriented x3 in no acute distress Extrem Other: Bilateral lower extremity examination shows good capillary refill, no skin lesions noted, normal sensation light touch Right knee examination shows a minimal effusion, minimal crepitus with range of motion, tenderness along her medial joint line, positive Damir's test, no instability Quality Reporting (2019) Adult ([facility] 13806/20/68) Smoking risk assessment performed?: Yes Patient Tobacco Use Status: Former Tobacco user Results Reviewed Results Reviewed: Standing full weight-bearing x-rays of the patient's right knee show minimal joint space narrowing, no acute bony abnormalities Assessment & Plan Assessment & Plan (1) Right knee pain: Code(s): M25.561 - Pain in right knee Category: Medical Plan Ms. Ramos presents with progressively worsening right knee pain and mechanical symptoms most likely due to a tear of her medial meniscus. Thus, I will send the patient for an MRI of her right knee for further evaluation. I will see her back once the MRI is completed to discuss findings and treatment options. Feel free to call me at any time should questions regarding her orthopedic management arise. Thank you very much for asking me to see this very friendly patient. I spent 22 minutes in reviewing the patient's records and imaging studies, seeing the patient and documenting in the medical record. Orders: Orders MR knee RT wo con Today M25.561 - Pain in right knee Coding Level of Care Code New Pt Level 3 (88391) Diagnoses Right knee pain M25.561
[2023-12-10 11:01] VITALS: BMI 29.5
== END 2023-12-10 11:20 | disposition home or self-care (01) ==
PROVIDERS: PCP Internal Medicine; Visit Provider Orthopaedic Surgery
DX: M25.561 Pain in right knee (principal)
CPT/HCPCS: 99203

== ENCOUNTER 2024-01-18 19:03 | Outpatient (REF) | payer OTHER, SELFPAY ==
--- NOTE | ~2024-01-18 | MR_ITS ---
EXAMINATION: MR KNEE WITHOUT CONTRAST, RIGHT CLINICAL INFORMATION: Knee pain COMPARISON: X-ray 12/10/2023 TECHNIQUE: MRI of the knee without contrast was performed using routine sequences on a high-field scanner. FINDINGS: MENISCI: Medial Meniscus: Tibial articular surface fraying/ill-defined tear of the posterior root/central posterior horn. Intrasubstance degenerative signal in the posterior horn otherwise. Mild medial extrusion of the body. Mild fraying of the anterior root. Mild anterior root fraying. Lateral Meniscus: Intact LIGAMENTS: Cruciate: Intact Collateral: Intact EXTENSOR MECHANISM: Intact ARTICULAR CARTILAGE/BONE: Patellofemoral Compartment: Cartilage thinning and fissuring in the medial trochlea. Medial Compartment: Chondral thinning in the central/medial aspect of the compartment. Subchondral edema in the medial aspect of the tibial plateau and femoral condyle condyle, could be related degeneration, contusion, stress/insufficiency injury. No fracture plane seen. Lateral Compartment: No significant chondral loss. Small effusion. JOINT FLUID AND BURSAE: Small effusion. Trace Neri's cyst. MR/MR knee RT wo con IMPRESSION: 1. Tibial articular surface fraying/tear of the posterior root/central posterior horn of the medial meniscus. Mild anterior root fraying.. 2. Mild patellofemoral and medial compartment arthritis. Subchondral edema in the medial aspect of the medial femoral condyle and tibial plateau,, could be related to degeneration, intermittent, stress/insufficiency injury. 3. Small effusion. Trace Neri's cyst. Electronically signed by: Jayesh Amanda MD 01/20/2024 08:28 AM EDT
== END 2024-01-18 19:04 | disposition home or self-care (01) ==
LOC: HO.MRI 19:03
PROVIDERS: PCP Internal Medicine; Visit Provider Orthopaedic Surgery
DX: M25.561 Pain in right knee (principal)
CPT/HCPCS: 73721

== ENCOUNTER 2024-01-23 08:04 | Outpatient (AMB) | payer OTHER, SELFPAY ==
--- NOTE | 2024-01-23 08:07 | MHC.OFFVIS ---
Intake Visit Reasons: Ultra sound follow up Mixer Operator Required: Yes Mixer Operator Language: Athletic Instructor Name: Julieta Information Interpreted: non-clinical & clinical Lead Pl Sql Developer: Lead Pl Sql Developer Present Allergies No Known Allergies [No Known Allergies*] Allergy (Verified 01/23/24 11:12) Is last menstrual period known: Yes HPI Comments Details: Patient is here today for a follow up ultrasound results. History of known fibroids. She denies any pelvic pain, pressure. LMP 6 months ago. [facility] Medical History Bleeding hemorrhoids Breast mass, right Polyarthralgia Abnormal Pap smear of cervix Fibroid uterus HPV test positive Cervicalgia Neck pain Fatigue Hand numbness Allergies GERD (gastroesophageal reflux disease) Surgical History Hx of tubal ligation History of hemicolectomy History of laparoscopic cholecystectomy Family History Father Alcoholism Mother No problems noted. Brother Diabetes Social History Household Members: Significant Other Housing: Apartment Alcohol intake: current Alcohol intake frequency: holidays/special occasions only Alcohol type: hard liquor Patient Tobacco Use Status: Former Tobacco user e-Cigarette/Vaping Use: Never Used Second Hand Smoke Exposure: No service: No Current occupational status: employed Current occupation: [employer]/ [employer] Current occupational exposures/hazards: No Sexual orientation: Straight/Heterosexual Gender identity: Female Cognitive needs: No Hearing needs: No Vision needs: No Female Reproductive History Menstrual Age of Menarche: 13 Review of Systems Const All systems reviewed & are unremarkable except as noted in HPI and below Endo Reports no additional complaints Physical Exam Const General: cooperative, healthy appearing and no acute distress Psych Appearance: well kempt Attitude: cooperative Thought process: Normal thought process present Quality Reporting (2019) Adult ([facility] 138/06/20/68) Smoking risk assessment performed?: Yes Patient Tobacco Use Status: Former Tobacco user Results Reviewed Results Reviewed: [address] [address] Ultrasound Report Signed Patient: Ava Ramos I MR#: [id number] : 1970 Acct:[id number] Age/Sex: 53 / F ADM Date: 11/28/23 Loc: HO.US Attending Dr: Nirmala Bliss CNM Ordering Physician: Nirmala Bliss CNM Date of Service: 11/28/23 Procedure(s): US pelvic and transvaginal Accession Number(s): [id number] cc: Nirmala Bliss CNM; Nadine Shabazz MD~ EXAMINATION: US PELVIS COMPLETE CLINICAL INFORMATION: Follow-up uterine fibroids; the last menstrual period is not specified. COMPARISON: Pelvic ultrasound dated 01/26/2010. TECHNIQUE: Transabdominal and transvaginal imaging were performed. FINDINGS: The uterus is of normal size and echogenicity, measuring 12.6 x 8.5 x 10.0 cm. The uterus is anteverted and anteflexed. A regular homogeneous endometrium is identified measuring 0.5 cm. FIBROIDS: There are 4 fibroids seen. 1. Location: Posterior upper rightward body, myometrial. Size: 6.2 x 6.4 x 5.5 cm. Fibroid characteristics: 2. Location: Posterior lower rightward body, myometrial. Size: 3.3 x 3.2 x 3.3 cm. Fibroid characteristics: 3. Location: Anterior leftward upper body, myometrial. Size: 5.3 x 3.7 x 4.4 cm. Fibroid characteristics: 4. Location: Leftward fundus, myometrial. Size: 4.7 x 3.0 x 4.4 cm. Fibroid characteristics: Both ovaries are of normal size and echogenicity. The right ovary is not visualized. The left ovary measures 2.9 x 2.5 x 3.8 cm for a volume of 14.4 mL. There is no pelvic free fluid. No adnexal mass is seen. US/US pelvic and transvaginal IMPRESSION: 1. Multiple uterine fibroids are seen, as detailed. 2. The right ovary is not visualized. Electronically signed by: Vu Montoya MD 12/23/2023 04:57 PM EDT Dictated By: Vu Montoya MD Signed By: <Electronically signed by Vu Montoya MD in OV> 12/23/23 1657 DD/ 1330 TD/TT: 11/28/23 1400 Principal Statistical Scientist: JACKSON Assessment & Plan Assessment & Plan (1) Fibroid: Code(s): D21.9 - Benign neoplasm of connective and other soft tissue, unspecified Plan Discussed: Ultrasound findings-new onset fibroid, multiple and large fibroids. Counseled re: Leiomyoma: common pelvic neoplasm. Differential diagnosis-may include but not limited to- leiomyosarcoma which is a rare uterine sarcoma 3-7/100,000, difficult to distinguish from fibroids on ultrasound from uterine sarcoma's. Unlikely any single test will have a highly positive predictive value. Hysterectomy is not recommended for sole purpose of excluding malignant neoplasm. Consult for surgical exploration, medical treatment, other treatments, verses expectant management, pros and cons, risks and benefits. Patient prefers monitoring. Expectant management follow up in 6 months, then yearly for stability. Report any AUB. Pelvic pressure, bloating, or pain. Menopause diagnosis discussed absence of menses for 12 months consecutively. Referral to MD if indicated for level of care if indicated. All of her questions and concerns were addressed to the best of my ability and shared decision making. She is agreeable to the plan of care. This note is constructed using voice recognition software. While every effort has been made to ensure accuracy, data processing control clerk errors may have been included. Orders: Orders US pelvic and transvaginal 05/18/24 D21.9 - Benign neoplasm of connective and other soft tissue, unspecified Coding Level of Care Code Est Pt Level 3 (14023) Diagnoses Fibroid D21.9
== END 2024-01-23 08:36 | disposition home or self-care (01) ==
LOC: HO.HWSW 08:04
PROVIDERS: PCP Internal Medicine; Visit Provider Advanced Practice Midwife
DX: D21.9 Benign neoplasm of connective and other soft tissue, unspecified (principal)
CPT/HCPCS: 99213

== ENCOUNTER → 2024-01-23 08:04 | Outpatient (BNVA) | payer OTHER, SELFPAY | PROVIDERS: PCP Internal Medicine; Visit Provider Advanced Practice Midwife | DX: K64.9 Unspecified hemorrhoids (principal); D21.9 Benign neoplasm of connective and other soft tissue, unspecified | CPT/HCPCS: 46600; 99202; 99212 ==

== ENCOUNTER 2024-01-23 10:53 | Outpatient (AMB) | payer OTHER, SELFPAY ==
--- NOTE | 2024-01-23 10:55 | A.OFFVIS_ITS ---
Vital Signs 01/23/24 10:56 Height 5 ft 4 in Weight 182 lb BMI 31.2 Intake Visit Reasons: bleeding hemorrhoids Intake Note: This patient presents for bleeding hemorrhoids. Pt c/o; reports had one episode of rectal bleeding 01/08/2024 which lasted for x2 days, reports constipation, discomfort. Brazer Crawler Torch Required: Yes Brazer Crawler Torch Language: Ethylbenzene Converter Operator Services: Brazer Crawler Torch Present Brazer Crawler Torch Name: Latricia Information Interpreted: non-clinical & clinical Accompanied by: Self / Same As Patient Allergies No Known Allergies [No Known Allergies*] Allergy (Verified 01/23/24 11:12) Medication List - Last Reconciled 01/23/24 by Kamron Freeman MD bisacodyl (Dulcolax (bisacodyl)) 20 mg (4 x 5 mg) PO ONCE 1 day ibuprofen 800 mg PO TID PRN 30 days loratadine 10 mg PO DAILY 90 days pantoprazole 40 mg PO DAILY 90 days polyethylene glycol 3350 (Miralax) 238 grams PO ONCE 1 day HPI HPI bleeding hemorrhoids: Details: 50-year-old female referred for hemorrhoid issues. She says she has had hemorrhoids for many years now. She describes frequent bleeding with this. She says that she was on vacation about 2 weeks ago when she had 2 days of heavy bleeding. She also describes occasional swelling and pain as well as discomfort. She feels that these have been worsening over the years She denies any previous anal surgery. She denies any incontinence. [facility] Medical History Bleeding hemorrhoids Breast mass, right Polyarthralgia Abnormal Pap smear of cervix Fibroid uterus HPV test positive Cervicalgia Neck pain Fatigue Hand numbness Allergies GERD (gastroesophageal reflux disease) Surgical History Hx of tubal ligation History of hemicolectomy History of laparoscopic cholecystectomy Family History Father Alcoholism Mother No problems noted. Brother Diabetes Social History Household Members: Significant Other Housing: Apartment Alcohol intake: current Alcohol intake frequency: holidays/special occasions only Alcohol type: hard liquor Patient Tobacco Use Status: Former Tobacco user e-Cigarette/Vaping Use: Never Used Second Hand Smoke Exposure: No service: No Current occupational status: employed Current occupation: [employer]/ [employer] Current occupational exposures/hazards: No Sexual orientation: Straight/Heterosexual Gender identity: Female Cognitive needs: No Hearing needs: No Vision needs: No Female Reproductive History Menstrual Age of Menarche: 13 Review of Systems Const Denies chills and Denies fever(s) Card Denies chest pain, Denies dyspnea and Denies dyspnea on exertion Resp Denies cough, Denies dyspnea and Denies dyspnea on exertion GI Reports hematochezia and Denies change in bowel habits Denies hematuria Musc Denies back pain and Denies limited range of motion Neuro Denies focal weakness and Denies convulsions Psych Denies depression and Denies mood swings Physical Exam Vital Signs: BMI result Body Mass Index 31.2 Const General: comfortable and no acute distress Orientation/consciousness: patient oriented x3 Neck Neck: Yes no lymphadenopathy Resp Auscultation: clear to auscultation bilaterally Cardio Rhythm: regular rhythm GI Other: Rectal exam shows large external hemorrhoids on both the left and right side Palpation (GI): Soft to palpation, nontender and no guarding Neuro General: patient oriented x3 Office Procedures Anoscopy She was in chirag-knife position. The anoscope was gently inserted. A full examination of the anal canal was done. She did have large internal and external hemorrhoidal columns on both the left and right side. There were no other lesions. There was no fissure. There was no bleeding. There was no induration. She had good sphincter tone. 54359-Yirsrame Quality Reporting (2019) Adult ([facility] 13806/20/68) Smoking risk assessment performed?: Yes Patient Tobacco Use Status: Former Tobacco user Assessment & Plan Assessment & Plan (1) Bleeding hemorrhoids: Code(s): K64.9 - Unspecified hemorrhoids Category: Medical Plan: She has large internal and external hemorrhoids with bleeding periodically. She understands the option of proceeding with hemorrhoidectomy for symptomatic hemorrhoids. I reviewed the technique of this procedure. I explained the risks including but not limited to bleeding, infections, postop pain, poor healing, as well as the benefits and alternatives. She understands that we may not be able to remove all hemorrhoidal columns in 1 setting. I also reviewed with the what to expect postoperatively. She says that she has had significant discomfort, and frequent bleeding with the hemorrhoids and wants to proceed with hemorrhoidectomy. She was also scheduled to have a colonoscopy in couple of months so I told her that she should come back after colonoscopy so we can schedule her for hemorrhoidectomy. Coding Level of Care Code New Pt Level 3 (16980) Diagnoses Bleeding hemorrhoids K64.9 CPT Codes Details - CPT: 14377-Sfflhjch ([id number])
[2024-01-23 10:56] VITALS: BMI 31.2
== END 2024-01-23 11:25 | disposition home or self-care (01) ==
PROVIDERS: PCP Internal Medicine; Referring Provider Internal Medicine; Visit Provider Surgery
DX: K64.9 Unspecified hemorrhoids (principal)
CPT/HCPCS: 46600; 99203

== ENCOUNTER 2024-02-05 08:21 | Outpatient (AMB) | payer OTHER, SELFPAY ==
--- NOTE | 2024-02-05 08:24 | MHC.OFFVIS ---
Intake Visit Reasons: MRI review rt knee Intake Note: Ava is a 53 year old female who presents with complaints of progressively worsening right knee pain. She describes her pain as sharp in nature. Most of the pain is along the medial aspect of her right knee. She has tried physical therapy exercises which aggravated her pain. She has also tried Tylenol and ibuprofen which gave her minimal relief. She would like to hold off on surgery if at all possible. Office Services Assistant Required: Yes Office Services Assistant Language: Cell Biologist Name: (Cristofer) Allergies No Known Allergies [No Known Allergies*] Allergy (Verified 02/05/24 08:24) Medication List - Last Reconciled 02/06/24 by Santana Rich MD bisacodyl (Dulcolax (bisacodyl)) 20 mg (4 x 5 mg) PO ONCE 1 day ibuprofen 800 mg PO TID PRN 30 days loratadine 10 mg PO DAILY 90 days pantoprazole 40 mg PO DAILY 90 days polyethylene glycol 3350 (Miralax) 238 grams PO ONCE 1 day PFSH Medical History Bleeding hemorrhoids Breast mass, right Polyarthralgia Abnormal Pap smear of cervix Fibroid uterus HPV test positive Cervicalgia Neck pain Fatigue Hand numbness Allergies GERD (gastroesophageal reflux disease) Surgical History Hx of tubal ligation History of hemicolectomy History of laparoscopic cholecystectomy Family History Father Alcoholism Mother No problems noted. Brother Diabetes Social History Household Members: Significant Other Housing: Apartment Alcohol intake: current Alcohol intake frequency: holidays/special occasions only Alcohol type: hard liquor Patient Tobacco Use Status: Former Tobacco user e-Cigarette/Vaping Use: Never Used Second Hand Smoke Exposure: No service: No Current occupational status: employed Current occupation: [employer]/ [employer] Current occupational exposures/hazards: No Sexual orientation: Straight/Heterosexual Gender identity: Female Cognitive needs: No Hearing needs: No Vision needs: No Female Reproductive History Menstrual Age of Menarche: 13 Physical Exam Const Other: Well-nourished well-developed very friendly female awake alert and oriented x3 in no acute distress Extrem Other: Bilateral lower extremity examination shows good capillary refill, no skin lesions noted, normal sensation light touch Right knee examination shows a minimal effusion, mild crepitus with range of motion, tenderness along her medial joint line, positive Damir's test, no instability Office Procedures Joint Injection/Aspiration Joint Injection/Aspiration Primary Site: right knee Prep: site was prepped using aseptic technique Injected: 40 mg of, DepoMedrol and 1% plain lidocaine Procedure: The patient tolerated the procedure well Coding 56846 - Large joint Procedure code (CPT) selection complete Quality Reporting (2019) Adult ([facility] ) Smoking risk assessment performed?: Yes Patient Tobacco Use Status: Former Tobacco user Results Reviewed Results Reviewed: MRI of the patient's right knee shows mild diffuse degenerative changes as well as a tear of the medial meniscus Assessment & Plan Assessment & Plan (1) Right knee pain: Code(s): M25.561 - Pain in right knee Category: Medical Plan Ms. Ramos presents with right knee pain due to early degenerative joint disease as well as a tear of the medial meniscus. I had a lengthy discussion with the patient regarding the treatment options. She wishes to hold off on surgery if at all possible. The risks and benefits of a right knee cortisone injection were discussed at length with the patient. The patient wished to proceed. She tolerated the injection well. She will continue with her activity modifications. She will contact me prior to her follow-up appointment in 3 months should any questions or concerns arise. Feel free to call me at any time should questions regarding her orthopedic management arise. I spent 22 minutes in reviewing the patient's records and imaging studies, seeing the patient and documenting in the medical record. Orders: Orders AMB Joint Injection/Aspiration 02/05/24 M25.561 - Pain in right knee Coding Level of Care Code Est Pt Level 3 (82970) Complex EM visit Add On G2211 Diagnoses Right knee pain M25.561 CPT Codes Coding - 89024 Large joint: 58068 - Large joint ([id number])
== END 2024-02-05 08:55 | disposition home or self-care (01) ==
PROVIDERS: PCP Internal Medicine; Visit Provider Orthopaedic Surgery
DX: M25.561 Pain in right knee (principal)
CPT/HCPCS: 20610; 99213

== ENCOUNTER → 2024-02-05 08:21 | Outpatient (BNVA) | payer OTHER, SELFPAY | PROVIDERS: PCP Internal Medicine; Visit Provider Orthopaedic Surgery | DX: M25.561 Pain in right knee (principal) | CPT/HCPCS: 20610; 99212; J1010; J2003 ==

== ENCOUNTER 2024-06-12 13:38 | Outpatient (REF) | payer OTHER, SELFPAY ==
--- NOTE | ~2024-06-12 | US_ITS ---
CLINICAL HISTORY: D21.9 - Benign neoplasm of connective and other soft tissue, unspecified US pelvis transvaginal Comparison: None Findings: Transvaginal scanning performed. Enlarged fibroid uterus at 12.6 x 9.0 x 9.8 cm Endometrium 8 mm thickness. Right body fibroid at 5 x 4.7 x 4.6 cm. Right lower uterine segment fibroid at 2.6 x 2.8 x 2.9 cm. Left body fibroid at 4.4 x 3.8 x 3.8 cm. Left fundal fibroid at 2.5 x 2.6 x 2.5 cm Right ovary not visualized, and reportedly not seen previously. Left ovary at 2.3 x 1 x 1.7 cm. No focal abnormality. Flow not assessed. No free fluid. IMPRESSION: Enlarged fibroid uterus as above. Nonvisualization right ovary. Normal-appearing left ovary. This document has been electronically signed by: Ric Shirley MD on 06/16/2024 13:10:15
--- OUTSIDE RECORDS SUMMARY | 2024-06-12 13:44 | XMS_ITS | Clinical Summary ---
Author Organization [facility] ity Address [address] [place] [address] Care Team Providers Care Rehabilitation Worker Name Role Phone Nadine Manrique MD Primary Care Provider [phone] Social History Tobacco Use Types Packs/Day Years Used Date Smoking Tobacco: Never Assessed Comments Unknown Sex and Gender Information Value Date Recorded Sex Assigned at Not on file Legal Sex Female 5:05 AM EST Gender Identity Not on file Sexual Orientation Not on file Plan of Treatment Health Maintenance Due Date Last Done Comments Breast Cancer Screening 1970 DTaP,Tdap,and Td Vaccines (1 - Tdap) 1989 Hepatitis B Vaccines (1 of 3 - 19+ 3-dose series) 1989 Cervical Cancer Screening: P ap Smear 08/31/1991 Zoster Vaccines (1 of 2) 2020 Colorectal Cancer Screening: Colonoscopy 04/01/2022 Depression Screening 04/01/2022 HIV Screening 04/01/2022 Hepatitis C Screening 04/01/2022 Social Influencers of Health Screening 04/01/2022 COVID-19 Vaccine ( - 2023-2 5 season) 2023 Influenza Vaccine (#1) 2023 HIB Vaccines Aged Out No longer eligi ble based on patient's age to complete this topic HPV Vaccines Aged Out No longer eligi ble based on patient's age to complete this topic Hepatitis A Vaccines Aged Out No long er eligible based on patient's age to complete this topic IPV Vaccines Aged Out No longer eligi ble based on patient's age to complete this topic MMR Vaccines Aged Out No longer eligi ble based on patient's age to complete this topic Meningococcal ACWY Vaccine Aged Out N o longer eligible based on patient's age to complete this topic Pneumococcal Vaccine: Pediat rics (0 to 5 Years) and At-Risk Patients (6 to 64 Years) Aged Out No longer eligible b ased on patient's age to complete this topic RSV Immunization Patients Un davis 20 months Aged Out No longer eligible b ased on patient's age to complete this topic Varicella Vaccines Aged Out No longer eligible based on patient's age to complete this topic Care Teams Rehabilitation Worker Relationship Specialty Start Date End Date Nadine Manrique MD [address] [place] [address] , [address] [facility] D/B/A: [facility] RORO Lockett PCP - General Internal Medicine 08/10/19
== END 2024-06-12 13:39 | disposition home or self-care (01) ==
LOC: HO.US 13:38
PROVIDERS: PCP Internal Medicine; Visit Provider Advanced Practice Midwife
DX: D21.9 Benign neoplasm of connective and other soft tissue, unspecified (principal)
CPT/HCPCS: 76830; 76856

== ENCOUNTER → 2024-06-12 13:40 | Outpatient (BNV) | payer OTHER, SELFPAY | PROVIDERS: PCP Internal Medicine; Visit Provider Radiology Diagnostic Radiology | DX: D25.9 Leiomyoma of uterus, unspecified (principal) | CPT/HCPCS: 76830; 76856 ==

== ENCOUNTER 2024-06-18 13:14 | Outpatient (AMB) | payer OTHER, SELFPAY ==
--- NOTE | 2024-06-18 13:27 | MHC.OFFVIS ---
Intake Visit Reasons: Ultrasound follow up Bitumen Plant Operator Required: Yes Bitumen Plant Operator Services: Bitumen Plant Operator Present (in person) Bitumen Plant Operator Name: Ranjan Collins, spouse Senior Informatica Etl Developer: Senior Informatica Etl Developer Present (Luz Maria) Accompanied by: Spouse Allergies No Known Allergies [No Known Allergies*] Allergy (Verified 06/18/24 13:31) Is last menstrual period known: Yes HPI Comments Details: Patient is here today for a pelvic ultrasound follow up, history of fibroids, she is accompanied by her Erik who is also translating for her today, refusal for airflight attendants supervisor form signed. She reports frequency of urination, no dysuria. Additionally she reports ongoing pelvic pressure that is bothersome for her. Last menstrual period was 10-11 months ago. ON LICENSE OF [facility] Medical History Bleeding hemorrhoids Breast mass, right Polyarthralgia Abnormal Pap smear of cervix Fibroid uterus HPV test positive Cervicalgia Neck pain Fatigue Hand numbness Allergies GERD (gastroesophageal reflux disease) Surgical History Hx of tubal ligation History of hemicolectomy History of laparoscopic cholecystectomy Family History Father Alcoholism Mother No problems noted. Brother Diabetes Social History Household Members: Significant Other Housing: Apartment Alcohol intake: current Alcohol intake frequency: holidays/special occasions only Alcohol type: hard liquor Patient Tobacco Use Status: Former Tobacco user e-Cigarette/Vaping Use: Never Used Second Hand Smoke Exposure: No service: No Current occupational status: employed Current occupation: [employer] Current occupational exposures/hazards: No Sexual orientation: Straight/Heterosexual Gender identity: Female Cognitive needs: No Hearing needs: No Vision needs: No Female Reproductive History Menstrual Age of Menarche: 13 Review of Systems Const All systems reviewed & are unremarkable except as noted in HPI and below Endo Reports no additional complaints Physical Exam Const General: cooperative, healthy appearing and no acute distress Psych Appearance: well kempt Attitude: cooperative Thought process: Normal thought process present Quality Reporting (2019) Adult ([facility] 138/06/20/68) Smoking risk assessment performed?: Yes Patient Tobacco Use Status: Former Tobacco user Results Reviewed Results Reviewed: [address] [address] Ultrasound Report Signed Patient: Ava Ramos I MR#: [id number] : 1970 Acct:[id number] Age/Sex: 53 / F ADM Date: 06/12/24 Loc: HO.US Attending Dr: Nirmala Bliss CNM Ordering Physician: Nirmala Bliss CNM Date of Service: 06/12/24 Procedure(s): US pelvic and transvaginal Accession Number(s): [id number] cc: Nirmala Bliss CNM; Nadine Shabazz MD~ CLINICAL HISTORY: D21.9 - Benign neoplasm of connective and other soft tissue, unspecified US pelvis transvaginal Comparison: None Findings: Transvaginal scanning performed. Enlarged fibroid uterus at 12.6 x 9.0 x 9.8 cm Endometrium 8 mm thickness. Right body fibroid at 5 x 4.7 x 4.6 cm. Right lower uterine segment fibroid at 2.6 x 2.8 x 2.9 cm. Left body fibroid at 4.4 x 3.8 x 3.8 cm. Left fundal fibroid at 2.5 x 2.6 x 2.5 cm Right ovary not visualized, and reportedly not seen previously. Left ovary at 2.3 x 1 x 1.7 cm. No focal abnormality. Flow not assessed. No free fluid. IMPRESSION: Enlarged fibroid uterus as above. Nonvisualization right ovary. Normal-appearing left ovary. This document has been electronically signed by: Ric Shirley MD on 06/16/2024 13:10:15 Dictated By: Ric Shirley MD Signed By: <Electronically signed by Ric Shirley MD in OV> 06/16/24 1311 DD/ 1310 TD/TT: 06/16/24 1310 Furnace Fitter: Assessment & Plan Assessment & Plan (1) Fibroid uterus: Code(s): D25.9 - Leiomyoma of uterus, unspecified Category: Medical Qualifiers: Uterine leiomyoma location: unspecified location Qualified Code(s): D25.9 - Leiomyoma of uterus, unspecified Plan: Counseled re: Leiomyoma: common pelvic neoplasm. Differential diagnosis-may include but not limited to- leiomyosarcoma which is a rare uterine sarcoma 3-7/100,000, difficult to distinguish from fibroids on ultrasound from uterine sarcoma's. Unlikely any single test will have a highly positive predictive value. Hysterectomy is not recommended for sole purpose of excluding malignant neoplasm. Consult for surgical exploration, medical treatment, other treatments, verses expectant management, pros and cons, risks and benefits. Expectant management follow up in 6 months, then yearly for stability. Patient prefers to proceed with expectant management, and and have time to discuss this thoroughly with her privately, we will revisit her concerns at her annual visit 08/16/2024. Advised to call sooner if any changes. Monitor menstrual cycles, report any unscheduled bleeding, bleeding episodes <24 days apart or heavy/prolonged menstrual bleeding. Call the office for a follow up for any concerns. Menopause verses perimenopause. Menopause is definitive of 1 year of no menses or 12 months in succession. Report any abnormal uterine bleeding in example prolonged episodes, or short intervals less than 24 days. Report any AUB, increase pelvic pressure, bloating, or pain. Referral to MD if indicated for level of care if indicated. (2) Encounter to discuss test results: Code(s): Z71.2 - Person consulting for explanation of examination or test findings Category: Medical Plan: Discussed ultrasound findings-IMPRESSION: Enlarged fibroid uterus as above. Nonvisualization right ovary. Normal-appearing left ovary. fibroids 4-decreased in size. Endometrial lining reviewed normal range for perimenopause. (3) Frequency of urination: Code(s): R35.0 - Frequency of micturition Plan: UA clean-catch urine dip is negative Plan The patient expressed understanding and agreement with the plan of care. All of her questions and concerns were addressed to the best of my ability. This note is constructed using voice recognition software. While every effort has been made to ensure accuracy, business services clerk errors may have been included. Coding Level of Care Code Est Pt Level 3 (53058) Diagnoses Uterine leiomyoma, unspecified location D25.9 Uterine leiomyoma location: unspecified location Encounter to discuss test results Z71.2 Frequency of urination R35.0
--- OUTSIDE RECORDS SUMMARY | 2024-06-18 14:06 | XMS_ITS | Clinical Summary ---
Author Organization [facility] ity Address [address] [place] [address] Care Team Providers Care Intensive Care Medicine Specialist Name Role Phone Nadine Manrique MD Primary Care Provider [phone] Social History Tobacco Use Types Packs/Day Years [...] Cervical Cancer Screening: P ap Smear 08/31/1991 Pneumococcal Vaccine: 50+ Ye ars (1 of 1 - PCV) 2020 Zoster Vaccines (1 of 2) 2020 Colorectal [...] patient's age to complete this topic Meningococcal B Vacine Aged Out No lo nger eligible based on patient's age to complete [...] age to complete this topic Care Teams Intensive Care Medicine Specialist Relationship Specialty Start Date End Date Nadine Manrique MD [address] [place] [address] , [address] [facility] D/B/A: [facility] RORO Lockett PCP - General Internal Medicine 08/10/19
== END 2024-06-18 15:33 | disposition home or self-care (01) ==
PROVIDERS: PCP Internal Medicine; Visit Provider Advanced Practice Midwife
DX: D25.9 Leiomyoma of uterus, unspecified (principal); Z71.2 Person consulting for explanation of examination or test findings; R35.0 Frequency of micturition
CPT/HCPCS: 99213

== ENCOUNTER → 2024-06-18 13:14 | Outpatient (BNVA) | payer OTHER, SELFPAY | PROVIDERS: PCP Internal Medicine; Visit Provider Advanced Practice Midwife | DX: Z71.2 Person consulting for explanation of examination or test findings (principal); D25.9 Leiomyoma of uterus, unspecified; R35.0 Frequency of micturition | CPT/HCPCS: 99212 ==

== ENCOUNTER 2024-06-23 15:31 | Outpatient (AMB) | payer OTHER, SELFPAY ==
--- NOTE | 2024-06-23 15:37 | MHC.PC.OV ---
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 Name: Nadine Manrique MD Information Interpreted: non-clinical & clinical Accompanied by: Self / Same As Patient Allergies No Known Allergies [No Known Allergies*] Allergy (Verified 06/23/24 16:30) Medication List - Last Reconciled 06/23/24 by Nadine Manrique MD bisacodyl (Dulcolax (bisacodyl)) 20 mg (4 x 5 mg) PO ONCE 1 day ibuprofen 800 mg PO TID PRN 30 days loratadine 10 mg PO DAILY 90 days pantoprazole 40 mg PO DAILY 90 days polyethylene glycol 3350 (Miralax) 238 grams PO ONCE 1 day Tobacco use date assessed: 06/23/24 Dental Screening Dental Screen Date: 06/23/24 Did you have a dental visit in the last 12 months?: Yes Did you have a dental problem in the last 6 months where you did not have access to dental care?: No Was dental information given to patient?: Patient has dentist HPI HPI Comments History of Present Illness Details The patient is a 53-year-old female presenting for her annual physical examination. She reports persistent insomnia, noting she sleeps only two to three hours at night and experiences prolonged awakening. She has tried using melatonin, specifically a brand named Lorrie, but finds it ineffective, causing her to wake in the middle of the night. Additionally, she mentions minimal depression, indicated by a PHQ-9 score of 2. The patient also reports frequent urination, which was previously investigated with a negative urine test, suggesting a possible underlying fibroma. - Mammography: Recommended to repeat as the last was in 2022. - Pap Smear: Last performed in 2019; no abnormalities noted. - Tetanus Vaccination: No vaccination in the last 10 years; recommended today. - Laboratory Tests: Recommended to check cholesterol, glucose levels, renal and liver functions. - Colonoscopy: Recommended due to missed appointment previously arranged. [facility] Medical History (Updated 06/23/24 @ 21:46 by Nadine Manrique MD) Bleeding hemorrhoids Breast mass, right Polyarthralgia Abnormal Pap smear of cervix Fibroid uterus HPV test positive Cervicalgia Neck pain Fatigue Hand numbness Allergies GERD (gastroesophageal reflux disease) Surgical History Hx of tubal ligation History of hemicolectomy History of laparoscopic cholecystectomy Family History Father Alcoholism Mother No problems noted. Brother Diabetes Social History Household Members: Significant Other Housing: Apartment Alcohol intake: current Alcohol intake frequency: holidays/special occasions only Alcohol type: hard liquor Patient Tobacco Use Status: Former Tobacco user e-Cigarette/Vaping Use: Never Used Second Hand Smoke Exposure: No service: No Current occupational status: employed Current occupation: [employer] Current occupational exposures/hazards: No Sexual orientation: Straight/Heterosexual Gender identity: Female Cognitive needs: No Hearing needs: No Vision needs: No Female Reproductive History Menstrual Age of Menarche: 13 Questionnaire PHQ-9 Over the last 2 weeks, how often have you been bothered by any of the following problems? 1. Little interest or pleasure in doing things: not at all 2. Feeling down, depressed, or hopeless: not at all 3. Trouble falling or staying asleep, or sleeping too much: more than half the days 4. Feeling tired or having little energy: not at all 5. Poor appetite or overeating: not at all 6. Feeling bad about yourself - or that you are a failure or have let yourself or your family down: not at all 7. Trouble concentrating on things, such as reading the newspaper or watching television: not at all 8. Moving or speaking so slowly that other people could have noticed. Or the opposite - being so fidgety or restless that you have been moving around a lot more than usual: not at all 9. Thoughts that you would be better off or of hurting yourself in some way: not at all Total score: 2 Depression Screening Interpretation: Positive Depression Screening Follow-up: Existing condition and Follow-up Visit Requested Depression Screening Done: Yes 00406 - PHQ-9 Billing: Yes Source: Developed by Drs. Fede Ott, Barbie Naldo Mireles and colleagues, with an educational mack from [employer] Thrive Questionnaire Date Thrive assessed: 06/21/24 I am a: Patient What is your living situation today?: I have a steady place to live Within the past 12 months, did the food you bought not last and you didn't have the money to get more?: Never true Within the past 12 months, did you worry whether your food would run out before you got money to buy more?: Never true Do you have trouble paying for medicines?: No Do you have trouble getting transportation to medical appointments?: No Do you have trouble paying your heating and electricity bill?: No Do you have trouble taking care of your child, family member or friend?: No Do you have trouble with day-to-day activities such as bathing, preparing meals, shopping, managing finances, etc.?: No Are you currently unemployed and looking for a job?: Yes Are you interested in more education?: No Please select the resources that you would like help with: None Currently or been in a relationship where the following occur: No concerns reported THRIVE Score: 0 AUDIT C Alcohol Use Questionnaire (AUDIT-C) 1. How often do you have a drink containing alcohol?: Monthly or less 2. How many drinks containing alcohol do you have on a typical day when you are drinking?: 3 or 4 3. How often do you have six or more drinks on one occasion?: Less than monthly Total Score: 3 PHAN-7 AMB Questionnaire PHAN-7 Date PHAN - 7 assessed: 06/19/23 Feeling nervous, anxious, or on edge: 1 = Several days Not being able to stop or control worryin = Several days Worrying too much about different things: 1 = Several days Trouble relaxin = More than half the days Being so restless that it is hard to sit still: 1 = Several days Becoming easily annoyed or irritable: 2 = More than half the days Feeling afraid as if something awful might happen: 0 = Not at all Total PHAN-7 score (0-4 normal; 5-9 mild; 10-14 moderate; 15-21 severe): 8 Source: Developed by Drs. Fede Ott, Naldo Oviedo and colleagues, with an educational mack from [employer] PHAN-7 Assessment Billing PHAN-7 Assessment Tool: PHAN-7 Assessment 38176 Review of Systems Const All systems reviewed & are unremarkable except as noted in HPI and below Card Denies chest pain at rest, Denies chest pain with activity, Denies edema, Denies irregular heart rhythm, Denies claudication, Denies dyspnea, Denies dyspnea on exertion, Denies orthopnea, Denies paroxysmal nocturnal dyspnea and Denies slow heart rate Resp Denies cough, Denies dyspnea and Denies dyspnea on exertion GI Denies abdominal pain, Denies change in bowel habits, Denies excessive flatus, Denies nausea and Denies vomiting Denies urinary incontinence, Denies urinary hesitancy and Denies urinary urgency Musc Denies abnormal gait, Denies atrophy, Denies deformity and Denies limited range of motion Skin/Breast Denies bleeding lesions, Denies changing lesions and Denies rash Neuro Denies abnormal gait, Denies behavioral changes, Denies confusion and Denies lack of coordination Psych Denies behavioral changes and Denies confusion Physical exam (Primary Care) Vital Signs: Last Vital Signs BP 130/80 06/23/24 16:01 BMI result Body Mass Index 31.9 BMI Assessment/Plan discussion: High BMI High, discussed plan: lifestyle, weight reduction, dietary and physical activity Tobacco/Smoking Status: Tobacco use Status Tobacco use date assessed 06/23/24 06/23/24 15:38 Patient Tobacco Use Status Former Tobacco user 06/23/24 15:38 e-Cigarette/Vaping Use Never Used 06/23/24 15:38 PHQ-9: PHQ-9 Score PHQ-9: Total score 2 06/23/24 16:46 Depression Screening Interpretation: Positive Depression Screening Follow-up: Existing condition and Follow-up Visit Requested Thrive Assessment: Date of Thrive Assessment Date Thrive assessed 06/21/24 06/23/24 15:38 Currently or been in a relationship where the following occur: No concerns reported Const General: No confusion Orientation/consciousness: patient oriented x3 and No confusion HENMT Head: Yes normal to inspection, Yes normocephalic and Yes atraumatic Ears: external ears normal Eyes General: appearance normal, both eyes and all related structures Eyelids: Yes eyelids normal Conjunctivae: conjunctivae normal Neck Neck: Yes normal visual inspection and Yes supple Resp Effort & Inspection: normal respiratory effort Auscultation: clear to auscultation bilaterally Cardio Jugular venous distension: no JVD Rate: regular rate Rhythm: regular rhythm Heart sounds: S1 normal heart sound present and S2 normal heart sound present GI Inspection: Yes normal to inspection Palpation (GI): Soft to palpation and nontender Auscultation: normal bowel sounds Skin General skin exam: no rashes or lesions noted Neuro General: patient oriented x3, no focal motor deficits and No confusion Extrem General: Yes full ROM Psych Appearance: grossly normal Immunizations Boostrix Tdap 2.5 Lf unit-8 mcg-5 Lf/0.5 mL intramuscular syringe Performing Provider: Nadine Manrique MD [facility] Administered by: SIRENA Santillan on 06/23/24 16:47 Dose Route Admin Location Dispensed Lot Number Expiration Date NDC Housekeeper And 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 Assistant 0.5 mL IM Left Deltoid 0.5 mL [id number] 08/15/26 44822-989-97 [employer] VIS Given Date VIS Provided VIS Publication Date 06/23/24 Single Vaccine 20 Eligibility Eligibility Date Funding Source Not [facility] Eligible 06/23/24 Private Coding Level of Care Code Est Pt Level 3 (82606) Est Pt Prev Care 40-64y(68283) Diagnoses Physical exam Z00.00 Insomnia G47.00 Additional Codes HPAN-7 Assessment Billing - PHAN-7 Assessment Tool: PHAN-7 Assessment 06405 ([id number]) PHQ-9 - 12234 - PHQ-9 Billing: Yes ([id number]) Time Spent (min) 33 Assessment & Plan Assessment & Plan (1) Physical exam: Code(s): Z00.00 - Encounter for general adult medical examination without abnormal findings Category: Medical (2) Insomnia: Code(s): G47.00 - Insomnia, unspecified Category: Medical Plan - Conduct mammogram, laboratory tests for cholesterol, glucose, renal, and liver function, and schedule a colonoscopy. - Administer the Tetanus vaccine. - Address sleeping issues; consider further evaluation if necessary. - Monitor reported minimal depression for any changes in symptoms. Patient was informed and verbally consented to the use of an ambient scribe for clinic note documentation during this visit. During our discussion, we addressed the patient's concerns about insomnia, noting the ineffectiveness of current interventions like melatonin. We emphasized the importance of repeated mammography and colonoscopy, especially considering missed previous tests. I explained the need for a Tetanus vaccination due to the lapse of ten years since the last dose. The patient was advised regarding the significance of periodic laboratory screenings to check lipid profile, glycemic control, and renal and liver function as part of routine health maintenance. We discussed the negative urine test for urinary frequency and possible fibroma, noting no immediate intervention. I provided reassurances about the minimal depression noted and encouraged ongoing monitoring. We discussed the potential link between fibroma and urinary symptoms, explaining current management strategies. Orders: Orders Comprehensive [place]. Panel Fast Today Z00.00 - Encounter for general adult medical examination without abnormal findings Lipid Panel Today Z00.00 - Encounter for general adult medical examination without abnormal findings TDaP Immunization Today Z23 - Encounter for immunization Referrals Open Access Screening Colonoscopy Referral Z12.12 - Encounter for screening for malignant neoplasm of rectum Medications: New trazodone 50 mg PO BEDTIME PRN 30 tabs 2RF insomnia 30 days Patient Instructions: - Schedule and complete the recommended mammogram, colonoscopy, and lab tests as discussed. - Receive the Tetanus vaccination during this visit, or arrange another appointment if necessary. - Continue exploring sleep solutions and monitor patterns; report back if no improvement. - Report any exacerbations in depressive symptoms. - Follow specific lifestyle recommendations shared to manage overall health. - Maintain awareness of any new symptoms related to frequent urination or suspected fibroma.
[2024-06-23 16:01] VITALS: BP 130/80; BMI 31.9
--- OUTSIDE RECORDS SUMMARY | 2024-06-23 19:19 | XMS_ITS | Clinical Summary ---
Author Organization [facility] ity Address [address] [place] [address] Care Team Providers Care Dental Prosthetist Name Role Phone Nadine Manrique MD Primary Care Provider [phone] Social History Tobacco Use Types Packs/Day Years [...] age to complete this topic Care Teams Dental Prosthetist Relationship Specialty Start Date End Date Nadine Manrique MD [address] [place] [address] , [address] [facility] Physician Associ D/B/A: [facility] RORO Lockett PCP - General Internal Medicine 08/10/19
== END 2024-06-23 16:45 | disposition home or self-care (01) ==
PROVIDERS: PCP Internal Medicine; Visit Provider Internal Medicine
DX: Z00.00 Encounter for general adult medical examination without abnormal findings (principal); G47.00 Insomnia, unspecified; Z23 Encounter for immunization

== ENCOUNTER → 2024-06-23 15:31 | Outpatient (BNVA) | payer OTHER, SELFPAY | PROVIDERS: PCP Internal Medicine; Visit Provider Internal Medicine | DX: Z00.00 Encounter for general adult medical examination without abnormal findings (principal); Z23 Encounter for immunization; G47.00 Insomnia, unspecified | CPT/HCPCS: 90471; 90715; 96127; 99212; 99396 ==